=== PATIENT | male | born 1965 | race Caucasian/White ===

== ENCOUNTER 2024-11-27 12:31 | Emergency (ER) | payer OTHER, SELFPAY ==
[2024-11-27 12:38] LABS: Glucose - Point of Care 90 mg/dl (70-99)
[2024-11-27 12:40] VITALS: BP 172/79
[2024-11-27 12:44] VITALS: BP 172/79
[2024-11-27 13:00] VITALS: BP 153/78
--- NOTE | 2024-11-27 13:34 | ED.GENMED ---
History of Present Illness
General
Chief Complaint: Blood Sugar Problem
Source: patient
Exam Limitations: none
Time Seen by Provider: 11/27/24 12:58
History of Present Illness
History of Present Illness:
59yoM with a history of type 1 diabetes, CKD stage 4, and hypertension presenting via EMS for evaluation of hypoglycemia. Patient's Dexcom was not working this morning and he had to place a new monitor. His blood sugar was around 390 this morning
after eating breakfast so he administered himself 3 units of Humalog. His glucose went down to 100 after this and he went to work. About 1.5 hours ago, he started to become pale, diaphoretic, and disoriented. His blood sugar was reportedly 80 at
that time. EMS was called by his coworkers. He took 3 glucose tablets and glucose was 228 on EMS arrival. Patient is currently asymptomatic and states he feels well. He denies any fevers, vomiting, diarrhea. He was diagnosed with diabetes at the age
of 3. He uses 8 units of Basaglar at nighttime and sliding scale throughout the day. He states he is currently on the waiting list for a kidney transplant but is not on dialysis. He follows with [facility].
Phy Exam
General Physical Exam
General Presentation: well appearing and no apparent distress
General age: appears stated age
General Skin: warm and dry
General Habitus: normal
General Mental: alert
ENT Exam
ENT Exam: normocephalic
Cardiovascular Exam
Cardiovascular Exam: regular rate/rhythm and no murmur
Pulmonary Exam
Pulmonary Exam: lungs clear, no respiratory distress, no rales, no crackles and no rhonchi
Neurological Exam
Neurological Exam: alert
[place] Coma Scale
Eye Opening: Spontaneous
Verbal Response: Oriented
Motor Response: Obeys Commands
GCS Total Score: 15
Skin Exam
Skin Exam: normal color and warm/dry
Psychiatric Exam
Psychiatric Exam: normal mood/affect
Course
Orders/Labs/Results
Orders:
Orders
11/27/24 13:29
Complete Blood Count/With Diff Urgent
Comprehensive Metabolic Panel Urgent
Abnormal Lab Results
11/27/24 11/27/24
13: 14:39
WBC 4.0 L 10^3/uL
(4.8-10.8)
RBC 2.69 L 10^6/uL
(4.70-6.10)
Hgb 8.9 L g/dL
(13.0-18.0)
Hct 25.0 L %
(39.0-52.0)
MCH 33.1 H pg
(27.0-31.0)
Plt Count 123 L 10^3/uL
(130-400)
Absolute Lymphs (auto) 0.7 L 10^3/uL
(1.2-3.4)
Lymphocytes % 17.9 L %
(20.5-51.1)
Monocytes % 10.4 H %
(1.7-9.3)
Sodium 133 L mmol/L
(135-145)
BUN 75 H mg/dl
(9-20)
Creatinine 5.2 H* mg/dL
(0.7-1.3)
Glucose 143 H mg/dl
(70-99)
POC Glucose 183 H mg/dl
(70-99)
11/27/24 13:29
11/27/24 13:29
Vital Signs
Initial and Last Documented VS:
Initial Vital Signs
Temp Pulse Resp BP Pulse Ox
98.0 F 76 16 172/79 97
11/27/24 12:40 11/27/24 12:40 11/27/24 12:40 11/27/24 12:40 11/27/24 12:40
Last Documented Vital Signs
Temp Pulse Resp BP Pulse Ox
98.0 F 76 12 153/75 98
11/27/24 12:40 11/27/24 14:30 11/27/24 14:30 11/27/24 14:00 11/27/24 12:45
MDM/Problems Addressed
Differential Diagnosis Includes:
59yoM here after an episode of hypoglycemia. Became diaphoretic, pale, and disoriented while at work this afternoon and EMS was called. Glucose was reportedly 80 at that time. Symptoms now resolved after eating glucose tablets. He is hypertensive
with otherwise normal vital signs. He is well appearing in no distress. Exam reassuring. Differential diagnosis includes but is not limited to: hypoglycemia, poor PO intake, dehydration
Initial ED plan: Fingerstick on arrival 90. He was given a boxed lunch prior to initial assessment which he tolerated well. Will check CBC and CMP.
*Critical Care Note
Total Time (30-74mins, 75-104mins- exclusive of procedures): Not Applicable
Update Note
Update Note:
Creatinine 5.2 and BUN 75. Unclear baseline but patient does report being on the kidney transplant list. Called patient's PCP. Last labs from 11/23/23 showed a creatinine of 5.44 and BUN of 69. Hemoglobin today is 8.9 and patient reports a history of
chronic anemia and is on iron supplementation. Glucose 143 on BMP. On reassessment, patient remains asymptomatic. His Dexcom shows a glucose of 227. Repeat fingerstick is 183. Suspect his Dexcom may be overestimating his glucose. He was advised to
call the Dexcom marketing sales representative and check fingerstick glucoses at home. Advised close f/u with endocrinology and ED return precautions discussed. Patient in agreement with plan and was discharged in stable condition.
ED Attending Note
-
Portions of this chart may have been created with voice recognition software.� Occasional wrong word or��sound alike� substitutions may have occurred due to the inherent limitations of voice recognition software.
Discharge Plan
Departure
Patient Disposition: Home (Routine Discharge)
Date of Disposition: 11/27/24
Time of Disposition: 14:43
Patient with high blood pressure during this ER visit?: Yes
Discharge Problem:
Hypoglycemic episode in patient with diabetes mellitus
Instructions: Low Blood Sugar, Adult (DC)
Referrals:
UNKNOWN - PT DOES,NOT KNOW [Family Provider] -
Stand Alone Forms: Return to Work
Activity Restrictions/Additional Instructions:
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 You should check fingerstick sugars as well.
Return to the ER with any new or worsening symptoms.
Interventions
Interventions:
*Risk Screen - Suicide Last Done: 11/27/24 12:40
*General Assessment Last Done: 11/27/24 12:40
*Neglect/Abuse Screening Last Done: 11/27/24 12:40
*Nursing Disposition Last Done: 11/27/24 14:56
ED- Neurological Assessment Last Done: 11/27/24 12:45
Discharge Date and Time
Discharge Date/Time: 11/27/24 14:59
Print Language: MONGOLIAN
[2024-11-27 13:41] LABS: % Eosinophils 4.5 % (0-6); % Immature Granulocytes 0.2 % (0-0.5); % Lymphocytes 17.9 % (20.5-51.1); % Monocytes 10.4 % (1.7-9.3); Absolute Eosinophils 0.2 10^3/uL (0-0.7); Absolute Lymphocytes 0.7 10^3/uL (1.2-3.4); Absolute Monocytes 0.4 10^3/uL (0.1-0.6); Absolute Neutrophils 2.7 10^3/uL (1.4-6.5); Hemoglobin 8.9 g/dL (13.0-18.0); Mean Corp Hgb Conc. 35.6 g/dL (33.0-37.0); Mean Corpuscular Hgb 33.1 pg (27.0-31.0); Mean Corpuscular Volume 92.9 fL (80.0-94.0); Mean Platelet Volume 9.4 fL (7.4-10.4); Nucleated Red Blood Cells % 0 % (-); Platelet Count 123 10^3/uL (130-400); Red Blood Cell Count 2.69 10^6/uL (4.70-6.10); Red Cell Dist. Width 12.7 % (11.5-14.5)
[2024-11-27 13:58] LABS: ALT (SGPT) 26 U/L (0-50); AST (SGOT) 42 U/L (17-59); Albumin 4.2 g/dl (3.5-5.0); Alkaline Phosphatase 65 U/L (38-126); Blood Urea Nitrogen 75 mg/dl (9-20); Calcium 8.6 mg/dl (8.4-10.2); Carbon Dioxide 24 mmol/L (22-30); Chloride 99 mmol/L (98-107); Estimated Creatinine Clearance 16 ml/min; Glucose 143 mg/dl (70-99); Potassium 4.9 mmol/L (3.5-5.1); Sodium 133 mmol/L (135-145); Total Bilirubin 0.5 mg/dl (0.2-1.3); Total Protein 6.7 g/dl (6.3-8.2); eGFR 11.99
[2024-11-27 14:00] VITALS: BP 153/75
[2024-11-27 14:41] LABS: Glucose - Point of Care 183 mg/dl (70-99)
== END 2024-11-27 14:59 | disposition home or self-care (01) ==
LOC: EMR 12:31
PROVIDERS: Physician Assistant; EMERGENCY PHYSICIAN Student in an Organized Health Care Education/Training Program
DX: E10.649 Type 1 diabetes mellitus with hypoglycemia without coma (principal); E10.22 Type 1 diabetes mellitus with diabetic chronic kidney disease; I12.9 Hypertensive chronic kidney disease with stage 1 through stage 4 chronic kidney disease, or unspecified chronic kidney disease; N18.4 Chronic kidney disease, stage 4 (severe)
CPT/HCPCS: 99283; 80053; 82962; 85025